=== PATIENT | female | born 1980 | race Asian ===

== ENCOUNTER 2017-12-27 00:54 | Emergency (ER) | payer MEDICAID ==
[~2017-12-27] VITALS: Ht 152.4 cm; Wt 88.0 kg
[2017-12-27 03:43] VITALS: BP 135/58
== END 2017-12-27 03:49 | disposition home or self-care (01) ==
LOC: ER 00:55
DX: N72 Inflammatory disease of cervix uteri (principal); I10 Essential (primary) hypertension; E11.9 Type 2 diabetes mellitus without complications; Z88.0 Allergy status to penicillin
CPT/HCPCS: 99283

== ENCOUNTER 2019-05-21 05:26 | Emergency (ER) | payer MEDICAID ==
[~2019-05-21] VITALS: Ht 152.4 cm; Wt 95.1 kg
[2019-05-21 06:01] LABS: URINE HCG NEGATIVE (NEG)
--- NOTE | 2019-05-21 06:02 | NUR ---
LAB CALLED AND URINE SAMPLE IS INSUFFICIENT QUANTITY TO RUN UA, WILL BE ABLE TO RUN HCG. PRIMARY RN, DERREK AND PT AWARE.
--- NOTE | 2019-05-21 06:03 | NUR ---
UPDATED PT POC . ENCOURAGED PT TO DRINK WATER SO SHE CAN VOID A SPECIMAN TO CHECK URINE FOR uti . PT VERBALIZED THE UNDERSTANDING TO VOID FOR ASSESSMENT
--- NOTE | 2019-05-21 06:05 | NUR ---
HCG NEG . PATIENT INFORMED
--- NOTE | 2019-05-21 06:20 | NUR ---
pt ambulated to bathroom to void for urine speciman
[2019-05-21 07:29] VITALS: BP 149/95
[2019-05-21 07:55] LABS: CLARITY,URINE CLOUDY (Clear); COLOR,URINE YELLOW (Yellow); GLUCOSE, URINE NEGATIVE (Neg); KETONES,URINE NEGATIVE (Neg); LEUKOCYTE ESTERASE ,URINE NEGATIVE (Neg); NITRITES, URINE NEGATIVE (Neg); OCCULT BLOOD,URINE TRACE-INTACT (Neg); PROTEIN,URINE NEGATIVE (Neg); UROBILINOGEN,URINE 0.2 E.U/dL (0.2-1.0)
[2019-05-21 08:00] LABS: UA COLLECTION TYPE CLN CATCH MIDSTREAM
[2019-05-21 08:01] LABS: SQUAMOUS EPITHELIAL CELL,UR MODERATE /LPF (FEW)
[2019-05-21 08:02] LABS: BACTERIA,URINE 1+ /HPF (Neg); RBC,URINE 0-2 /HPF (0-2); WBC,URINE NONE SEEN /HPF (0-4)
== END 2019-05-21 09:56 | disposition home or self-care (01) ==
LOC: ER 05:26
DX: R10.2 Pelvic and perineal pain (principal); I10 Essential (primary) hypertension; E11.9 Type 2 diabetes mellitus without complications; Z88.0 Allergy status to penicillin
CPT/HCPCS: 81001; 81025; 87210; 99283

== ENCOUNTER 2023-12-10 00:50 | Emergency (ER) | payer MEDICAID ==
[~2023-12-10] VITALS: Ht 152.4 cm; Wt 88.6 kg
[2023-12-10 00:51] VITALS: TEMP 97.6
[2023-12-10] MEDS: LORazepam 2 mg/ml vial IV ONE (03:58)
[2023-12-10] MEDS: normal saline 1000ML IV soln IVB ONE ×2 (04:04→04:05)
[2023-12-10 04:16] LABS: BASOPHILS # (AUTO) 0.1 X10'3 (0-0.2); BASOPHILS % (AUTO) 0.7 % (0-1); EOSINOPHILS # (AUTO) 0.2 X10'3 (0-0.9); EOSINOPHILS % (AUTO) 2.7 % (0-6); HEMATOCRIT 30.7 % (35.0-45.0); HEMOGLOBIN 9.5 g/dl (12.0-16.0); LYMPHOCYTES # (AUTO) 1.5 X10'3 (1.1-4.8); LYMPHOCYTES % (AUTO) 19.3 % (21-51); MEAN CORPUSCULAR HEMOGLOBIN 25.1 PG (27.0-31.0); MEAN CORPUSCULAR HGB CONC 30.9 g/dL (33.0-36.5); MEAN CORPUSCULAR VOLUME 81.1 FL (78-98); MEAN PLATELET VOLUME 7.5 FL (7.4-10.4); MONOCYTES # (AUTO) 0.4 X10'3 (0-0.9); MONOCYTES % (AUTO) 4.6 % (2-12); NEUTROPHILS # (AUTO) 5.7 X10'3 (1.8-7.7); NEUTROPHILS % (AUTO) 72.7 % (42-75); PLATELET COUNT 243 X10'3 (140-440); RED BLOOD COUNT 3.78 X10'6 (4.20-5.60); RED CELL DISTRIBUTION WIDTH 18.5 % (11.5-14.5); WHITE BLOOD COUNT 7.8 X10'3 (4.5-11.0)
[2023-12-10 04:45] LABS: ALBUMIN 2.8 G/DL (3.4-5.0); ANION GAP 15 (8-16); BLOOD UREA NITROGEN 4 MG/DL (7-18); BUN/CREATININE RATIO 4.7 (10.0-20.0); CALCIUM 8.4 MG/DL (8.5-10.1); CHLORIDE 100 MMOL/L (99-107); CREATININE 0.85 MG/DL (0.40-0.90); ETHANOL 150 MG/DL (<10); GLUCOSE 299 MG/DL (70-104); MAGNESIUM 1.9 MG/DL (1.5-2.4); POTASSIUM 3.3 MMOL/L (3.5-5.1); SODIUM 139 MMOL/L (135-145); TOTAL CARBON DIOXIDE 24.5 MMOL/L (24-32); eCRCL 63 ML/MIN; eGFR 74 ML/MIN
[2023-12-10] MEDS ORDERED: HYDR-3965 PO (05:50)
[2023-12-10] MEDS ORDERED: LEVO-65 PO (05:50)
[2023-12-10] MEDS ORDERED: METR-159 PO (05:50)
[2023-12-10] MEDS ORDERED: LORA-269 PO (06:02)
[2023-12-10 06:51] VITALS: BP 115/74; PULSE 96; RESP 21; O2SAT 98
== END 2023-12-10 06:59 | disposition home or self-care (01) ==
LOC: ER 00:51
DX: S16.1XXA Strain of muscle, fascia and tendon at neck level, initial encounter (principal); S09.90XA Unspecified injury of head, initial encounter; I10 Essential (primary) hypertension; E11.9 Type 2 diabetes mellitus without complications; F10.129 Alcohol abuse with intoxication, unspecified; F10.139 Alcohol abuse with withdrawal, unspecified; F41.9 Anxiety disorder, unspecified; Z88.0 Allergy status to penicillin; Z79.2 Long term (current) use of antibiotics; Z79.899 Other long term (current) drug therapy; Y90.9 Presence of alcohol in blood, level not specified; X58.XXXA Exposure to other specified factors, initial encounter; Y93.89 Activity, other specified; Y92.89 Other specified places as the place of occurrence of the external cause; Y99.8 Other external cause status
CPT/HCPCS: 36415; 70450; 71045; 72125; 80048; 80320; 82948; 83735; 84484; 85025; 93005; 96361; 96374; 99285; J2060; J7030